=== PATIENT | female | born 1970 | race Caucasian/White ===

== ENCOUNTER → 2016-09-08 | Outpatient (CLI) | payer OTHER ==
[~2016-09-08] MED LIST: BUPROPION XL300 MG PO; CELEXA40 MG PO; ESTRACE2 MG PO; GLUCOPHAGE500 MG PO; LIPITOR TAB 2020 MG PO; MELOXICAM15 MG PO; OXYCODONE HCL10 MG PO; PERCOCET 10-321 EACH PO; PRAMIPEXOLE0.125 MG PO; SYNTHROID75 MCG PO; XARELTO10 MG PO
== END ==
LOC: LAB 12:32
DX: Z01.812 Encounter for preprocedural laboratory examination (principal); M17.11 Unilateral primary osteoarthritis, right knee; I10 Essential (primary) hypertension; E11.9 Type 2 diabetes mellitus without complications
CPT/HCPCS: 36415; 80051; 82565; 84520; 86850; 86900; 86901

== ENCOUNTER 2016-09-09 09:46 | Inpatient (IN) | payer OTHER ==
[~2016-09-09] VITALS: Ht 170.2 cm; Wt 92.1 kg
[~2016-09-09 09:46] MED LIST changes: -OXYCODONE HCL10 MG PO; -PERCOCET 10-321 EACH PO; -XARELTO10 MG PO
[2016-09-10 05:45] LABS: RED BLOOD COUNT 3.76 M/UL (4.00-5.10); WHITE BLOOD COUNT 6.7 K/UL (4.5-11.0)
[2016-09-10 05:48] LABS: HEMOGLOBIN 10.4 gm/dl (12.3-15.3)
[2016-09-10 05:58] LABS: BUN/CREATININE RATIO 18 (0-10)
[2016-09-11 04:46] LABS: HEMOGLOBIN 9.9 gm/dl (12.3-15.3); RED BLOOD COUNT 3.6 M/UL (4.00-5.10); WHITE BLOOD COUNT 6.8 K/UL (4.5-11.0)
[2016-09-11 05:04] LABS: BUN/CREATININE RATIO 16 (0-10)
[2016-09-12 06:09] LABS: HEMOGLOBIN 9.2 gm/dl (12.3-15.3); RED BLOOD COUNT 3.33 M/UL (4.00-5.10); WHITE BLOOD COUNT 7.1 K/UL (4.5-11.0)
[2016-09-12 06:33] LABS: BUN/CREATININE RATIO 16 (0-10)
[2016-09-12] MEDS ORDERED: OXYCODONE HCL10 MG PO (20:32)
[2016-09-12] MEDS ORDERED: XARELTO10 MG PO (20:33)
[2016-09-12] MEDS ORDERED: PERCOCET 10-321 EACH PO (20:36)
== END 2016-09-12 21:12 | disposition home health service (06) | DRG 467 ==
LOC: M/S 09:46 → ZOBSOF 09:46 → M/S 17:45
PROVIDERS: Internal Medicine; ADMIT Orthopaedic Surgery
PROC: 0SBC0ZZ Excision of Right Knee Joint, Open Approach (ICD-10-PCS; 2016-09-09)
PROC: 0SBC0ZZ Excision of Right Knee Joint, Open Approach (ICD-10-PCS; 2016-09-09)
PROC: 0S9C3ZX Drainage of Right Knee Joint, Percutaneous Approach, Diagnostic (ICD-10-PCS; 2016-09-09)
PROC: 3E0T3CZ (ICD-10-PCS; 2016-09-09)
PROC: 0SRC0J9 Replacement of Right Knee Joint with Synthetic Substitute, Cemented, Open Approach (ICD-10-PCS; principal; 2016-09-09 12:45)
PROC: 0SPC0JZ Removal of Synthetic Substitute from Right Knee Joint, Open Approach (ICD-10-PCS; 2016-09-09 12:45)
DX: T84.032A Mechanical loosening of internal right knee prosthetic joint, initial encounter (principal); D62 Acute posthemorrhagic anemia; T84.012A Broken internal right knee prosthesis, initial encounter; Y79.3 Surgical instruments, materials and orthopedic devices (including sutures) associated with adverse incidents; M17.11 Unilateral primary osteoarthritis, right knee; M25.761 Osteophyte, right knee; E11.9 Type 2 diabetes mellitus without complications; G89.18 Other acute postprocedural pain; M62.838 Other muscle spasm; I10 Essential (primary) hypertension; E78.5 Hyperlipidemia, unspecified; J45.909 Unspecified asthma, uncomplicated; E03.9 Hypothyroidism, unspecified; G25.81 Restless legs syndrome; K21.9 Gastro-esophageal reflux disease without esophagitis; K76.0 Fatty (change of) liver, not elsewhere classified; E55.9 Vitamin D deficiency, unspecified; R06.81 Apnea, not elsewhere classified; F32.9 Major depressive disorder, single episode, unspecified; F41.9 Anxiety disorder, unspecified; Z79.84 Long term (current) use of oral hypoglycemic drugs; Z79.1 Long term (current) use of non-steroidal anti-inflammatories (NSAID); Z79.890 Hormone replacement therapy; Z79.899 Other long term (current) drug therapy; Z90.710 Acquired absence of both cervix and uterus; Z90.49 Acquired absence of other specified parts of digestive tract; Z98.890 Other specified postprocedural states; Z83.3 Family history of diabetes mellitus; Z83.79 Family history of other diseases of the digestive system
CPT/HCPCS: 36415; 73560; 80048; 80053; 82962; 85025; 87070; 87205; 97110; 97116; 97530; 97535; C1776; J0690; J1885; J2001; J2250; J2270; J2405; J2795; J3010; J3370; J7030; J7050; J7120

== ENCOUNTER → 2021-09-09 | Outpatient (CLI) | payer OTHER ==
[~2021-09-09] MED LIST changes: +ELIQUIS2.5 MG PO; -LIPITOR TAB 2020 MG PO; +LOVASTATIN40 MG PO; +OXYCODONE HCL10 MG PO; +PERCOCET 10-321 EACH PO; +PROVENTIL HFA6.7 GM INH; +SINGULAIR10 MG PO; +SYMBICORT 160-1 INHA INH; +XARELTO10 MG PO
[2021-09-09 10:46] LABS: HEMOGLOBIN 12.9 gm/dl (12.3-15.3); RED BLOOD COUNT 4.51 M/UL (4.00-5.10); WHITE BLOOD COUNT 7.3 K/UL (4.5-11.0)
== END ==
LOC: LAB 10:15
PROVIDERS: Orthopaedic Surgery
DX: M89.50 Osteolysis, unspecified site (principal)
CPT/HCPCS: 36415; 85027; 85652; 86140

== ENCOUNTER → 2021-09-20 | Outpatient (CLI) | payer OTHER | LOC: KOH-I 12:32 | DX: M17.11 Unilateral primary osteoarthritis, right knee (principal); M25.461 Effusion, right knee; R93.6 Abnormal findings on diagnostic imaging of limbs | CPT/HCPCS: 73700 ==

== ENCOUNTER → 2021-11-20 | Outpatient (CLI) | payer OTHER ==
[~2021-11-20] MED LIST changes: +CELEBREX 200MG200 MG PO; +CYMBALTA60 MG PO; +FLOVENT HFA12 G1 INH; +LISINOPRIL10 MG PO; +OZEMPIC0.25 MG/0. SQ; +PRAMIPEXOLE DIHY1 MG PO; -PRAMIPEXOLE0.125 MG PO; +PROAIR HFA8.5 GM INH; +PROTONIX 40 MG40 M1 PO; +SYNTHROID100 MCG PO; -SYNTHROID75 MCG PO; +VITAMIN D21250 MCG PO; +VITAMIN D350 MC3 PO
[2021-11-20 10:39] LABS: HEMOGLOBIN 13.5 gm/dl (12.3-15.3); RED BLOOD COUNT 4.65 M/UL (4.00-5.10)
[2021-11-20 10:59] LABS: BUN/CREATININE RATIO 21 (0-10)
== END ==
LOC: OPSV2 09:45 → EDSTATUS 10:00
PROVIDERS: Orthopaedic Surgery
DX: Z01.818 Encounter for other preprocedural examination (principal)
CPT/HCPCS: 36415; 71046; 80048; 83036; 85027; 85652; 86140; 93005

== ENCOUNTER → 2021-12-02 | Outpatient (CLI) | payer OTHER ==
[~2021-12-02] MED LIST changes: +CYCLOBENZAPRINE10 MG PO; +HYDROCODON-ACE1 EAC6 PO; +ZOFRAN 4 MG TAB4 MG PO
[2021-12-02 13:16] LABS: BUN/CREATININE RATIO 14 (0-10)
== END ==
LOC: LAB 12:34
PROVIDERS: Orthopaedic Surgery
DX: Z01.812 Encounter for preprocedural laboratory examination (principal)
CPT/HCPCS: 36415; 80048; 86850; 86900; 86901

== ENCOUNTER 2021-12-03 07:01 | Inpatient (IN) | payer OTHER ==
[~2021-12-03] VITALS: Ht 167.6 cm; Wt 109.3 kg
[~2021-12-03 07:01] MED LIST changes: -CYCLOBENZAPRINE10 MG PO; -HYDROCODON-ACE1 EAC6 PO; -ZOFRAN 4 MG TAB4 MG PO
[2021-12-03] MEDS ORDERED: HYDROCODON-ACE1 EAC6 PO (14:29)
[2021-12-03] MEDS ORDERED: CYCLOBENZAPRINE10 MG PO (14:29)
[2021-12-03] MEDS ORDERED: ELIQUIS2.5 MG PO (14:29)
[2021-12-03] MEDS ORDERED: ZOFRAN 4 MG TAB4 MG PO (14:29)
[2021-12-03 15:05] LABS: HEMOGLOBIN 12.7 gm/dl (12.3-15.3); RED BLOOD COUNT 4.35 M/UL (4.00-5.10); WHITE BLOOD COUNT 21.8 K/UL (4.5-11.0)
[2021-12-03 15:35] LABS: BUN/CREATININE RATIO 17 (0-10)
[2021-12-04 06:29] LABS: HEMOGLOBIN 10.5 gm/dl (12.3-15.3); RED BLOOD COUNT 3.55 M/UL (4.00-5.10); WHITE BLOOD COUNT 10.8 K/UL (4.5-11.0)
[2021-12-04 06:55] LABS: BUN/CREATININE RATIO 17 (0-10)
--- NOTE | 2021-12-04 11:54 | NUR ---
PATIENT RANG CALL LIGHT. NURSE BINA WAS FIRST ON THE SCENE AND FOUND PATIENT ON HER BUTT. PT STATED SHE WAS HEADED TO BED WHEN HER KNEE GAVE OUT AND SHE FELL ON HER RIGHT KNEE. PATIENT STATES "i KNEW SHE SHOULD HAVE CALLED OUT FOR HELP BUT I THOUGHT I COULD DO IT BECAUSE I HAD BEEN DOING SO WELL". HEAD TO TOE ASSESMENT REVEALS NO NEW INJURIES. VITAL SIGHNS STABLE. PHYCICIAN NOTIFIED. PATIENT BACK IN BED WITH BED ALARM ON
[2021-12-05 05:31] LABS: HEMOGLOBIN 8.2 gm/dl (12.3-15.3); RED BLOOD COUNT 2.8 M/UL (4.00-5.10); WHITE BLOOD COUNT 8.1 K/UL (4.5-11.0)
[2021-12-05 05:40] LABS: BUN/CREATININE RATIO 16 (0-10)
[2021-12-06 06:17] LABS: HEMOGLOBIN 8.6 gm/dl (12.3-15.3); RED BLOOD COUNT 2.92 M/UL (4.00-5.10); WHITE BLOOD COUNT 6.5 K/UL (4.5-11.0)
[2021-12-06 06:26] LABS: BUN/CREATININE RATIO 16 (0-10)
[2021-12-06] MEDS ORDERED: KETOROLAC TROME10 ML EYERT (11:18)
[2021-12-06] MEDS ORDERED: BACITRACIN-POL3.5 GM EYERT (11:18)
== END 2021-12-06 14:16 | disposition home or self-care (01) | DRG 467 ==
LOC: OR 07:01 → MED SURG 4 16:20 → OR 16:21 → EDSTATUS 17:30 → MED SURG 4 12-06 14:16
PROVIDERS: Anesthesiology; ADMIT Orthopaedic Surgery
PROC: 0SPV0JZ Removal of Synthetic Substitute from Right Knee Joint, Tibial Surface, Open Approach (ICD-10-PCS; principal; 2021-12-03 17:30)
PROC: 0SRV0J9 Replacement of Right Knee Joint, Tibial Surface with Synthetic Substitute, Cemented, Open Approach (ICD-10-PCS; 2021-12-03 17:30)
DX: T84.032A Mechanical loosening of internal right knee prosthetic joint, initial encounter (principal); D62 Acute posthemorrhagic anemia; Z20.822 Contact with and (suspected) exposure to COVID-19; Y83.8 Other surgical procedures as the cause of abnormal reaction of the patient, or of later complication, without mention of misadventure at the time of the procedure; I10 Essential (primary) hypertension; K21.9 Gastro-esophageal reflux disease without esophagitis; F41.9 Anxiety disorder, unspecified; G25.81 Restless legs syndrome; M79.7 Fibromyalgia; E78.5 Hyperlipidemia, unspecified; S05.01XA Injury of conjunctiva and corneal abrasion without foreign body, right eye, initial encounter; J45.909 Unspecified asthma, uncomplicated; E11.9 Type 2 diabetes mellitus without complications; E03.9 Hypothyroidism, unspecified; F32.A Depression, unspecified; M51.36 Other intervertebral disc degeneration, lumbar region; G47.33 Obstructive sleep apnea (adult) (pediatric); Z84.89 Family history of other specified conditions; Z56.0 Unemployment, unspecified; Z90.710 Acquired absence of both cervix and uterus; Z98.891 History of uterine scar from previous surgery; Z90.49 Acquired absence of other specified parts of digestive tract; Z88.8 Allergy status to other drugs, medicaments and biological substances; Z80.3 Family history of malignant neoplasm of breast
CPT/HCPCS: 36415; 73560; 80048; 80202; 85027; 87070; 87205; 94664; 97116-GP-CQ; 97161; 97166; 97530-GP-CQ; 97535; C1713; C1776; J0171; J0690; J1100; J1170; J1644; J1885; J2001; J2250; J2270; J2370; J2405; J2704; J2710; J2795; J3010; J3370; J7030; J7050; J7070; J7120

== ENCOUNTER 2021-12-14 19:36 | Inpatient (IN) | payer OTHER ==
[~2021-12-14] VITALS: Ht 167.6 cm; Wt 95.3 kg
[~2021-12-14 19:36] MED LIST changes: +BACITRACIN-POL3.5 GM EYERT; +CYCLOBENZAPRINE10 MG PO; +HYDROCODON-ACE1 EAC6 PO; +KETOROLAC TROME10 ML EYERT; +ZOFRAN 4 MG TAB4 MG PO
[2021-12-14 21:47] LABS: HEMOGLOBIN 8.5 gm/dl (12.3-15.3); WHITE BLOOD COUNT 5.6 K/UL (4.5-11.0)
[2021-12-14 22:10] LABS: BUN/CREATININE RATIO 19 (0-10)
[2021-12-15 06:35] LABS: HEMOGLOBIN 8.4 gm/dl (12.3-15.3); RED BLOOD COUNT 2.94 M/UL (4.00-5.10); WHITE BLOOD COUNT 5.2 K/UL (4.5-11.0)
[2021-12-15 06:50] LABS: BUN/CREATININE RATIO 15 (0-10)
[2021-12-16 05:52] LABS: HEMOGLOBIN 8.1 gm/dl (12.3-15.3); RED BLOOD COUNT 2.86 M/UL (4.00-5.10); WHITE BLOOD COUNT 5.7 K/UL (4.5-11.0)
[2021-12-16 06:13] LABS: BUN/CREATININE RATIO 13 (0-10)
[2021-12-17 05:15] LABS: HEMOGLOBIN 7.9 gm/dl (12.3-15.3); RED BLOOD COUNT 2.94 M/UL (4.00-5.10); WHITE BLOOD COUNT 6.4 K/UL (4.5-11.0)
[2021-12-17 05:36] LABS: BUN/CREATININE RATIO 18 (0-10)
[2021-12-17] MEDS ORDERED: ZOFRAN 4 MG TAB4 MG PO (15:58)
[2021-12-17] MEDS ORDERED: ENDOCET 10-3251 EACH PO (15:58)
[2021-12-17] MEDS ORDERED: CYCLOBENZAPRINE10 MG PO (15:58)
[2021-12-17] MEDS ORDERED: ELIQUIS2.5 MG PO (15:58)
[2021-12-17 16:55] LABS: MONONUCLEAR CELLS 10 %; POLYMORPHONUCLEAR 90 %; RBC (AUTOMATED) 29600 10^6; WBC (AUTOMATED) 7115 10^3
[2021-12-18 06:09] LABS: HEMOGLOBIN 7.6 gm/dl (12.3-15.3); RED BLOOD COUNT 2.71 M/UL (4.00-5.10); WHITE BLOOD COUNT 7.1 K/UL (4.5-11.0)
[2021-12-18 06:26] LABS: BUN/CREATININE RATIO 20 (0-10)
[2021-12-19 05:41] LABS: HEMOGLOBIN 7.3 gm/dl (12.3-15.3); RED BLOOD COUNT 2.61 M/UL (4.00-5.10); WHITE BLOOD COUNT 6.1 K/UL (4.5-11.0)
[2021-12-19 06:03] LABS: BUN/CREATININE RATIO 19 (0-10)
[2021-12-20 06:26] LABS: RED BLOOD COUNT 2.51 M/UL (4.00-5.10); WHITE BLOOD COUNT 5.2 K/UL (4.5-11.0)
[2021-12-20 08:08] LABS: BUN/CREATININE RATIO 20 (0-10)
== END 2021-12-20 13:32 | disposition home health service (06) | DRG 486 ==
LOC: ER1 19:36 → MED SURG 4 21:47 → CDU 21:47 → MED SURG 4 12-15 07:45
PROVIDERS: Internal Medicine; Orthopaedic Surgery; Physician Assistant; ADMIT Internal Medicine
PROC: 0SUW09Z Supplement Left Knee Joint, Tibial Surface with Liner, Open Approach (ICD-10-PCS; 2021-12-17)
PROC: 0SPD09Z Removal of Liner from Left Knee Joint, Open Approach (ICD-10-PCS; principal; 2021-12-17 13:00)
DX: T84.53XA Infection and inflammatory reaction due to internal right knee prosthesis, initial encounter (principal); L03.115 Cellulitis of right lower limb; D62 Acute posthemorrhagic anemia; Z20.822 Contact with and (suspected) exposure to COVID-19; K21.9 Gastro-esophageal reflux disease without esophagitis; G47.33 Obstructive sleep apnea (adult) (pediatric); Y83.8 Other surgical procedures as the cause of abnormal reaction of the patient, or of later complication, without mention of misadventure at the time of the procedure; E11.9 Type 2 diabetes mellitus without complications; F41.9 Anxiety disorder, unspecified; F32.A Depression, unspecified; Z79.4 Long term (current) use of insulin; Z90.710 Acquired absence of both cervix and uterus; Z80.3 Family history of malignant neoplasm of breast
CPT/HCPCS: 36415; 73560; 80048; 80053; 80202; 82945; 82962; 83605; 83880; 85025; 85027; 85652; 86140; 86850; 86900; 86901; 86920; 87040; 87070; 87205; 89051; 96365; 96366; 97116-GP-CQ; 97161; 97165; 99283; C1713; C1751; C1776; J0696; J1100; J1170; J1885; J2001; J2250; J2270; J2405; J2704; J2795; J3010; J3370; J7070; P9016